=== PATIENT | female | born 1935 | race Caucasian/White ===

== ENCOUNTER → 2016-08-30 | Outpatient (CLI) | payer OTHER ==
[~2016-08-30] MED LIST: ADVAIR 2501 DISK W/D PO; ADVAIR 500-501 EACH IH; ADVAIR DISKU1 500/50 INH; ALBUTEROL 0.5ML INH; ALBUTEROL MININEB NEB; ALBUTEROL17 GM; ALBUTEROL17 GM INH; ALPRAZOLAM PO; ARTIFICIAL TEAR1 DRP OU; CARAFATE1 G PO; CRESTOR PO; DICLOFENAC; EYE ITCH RELIEF OU; FLEXERIL PO; LIPITOR; LIPITOR PO; LISINOPRIL10 MG PO; LORTAB 7.5-5001 TAB PO; MEDROL PO; MILK OF MAGNESIA PO; NORVASC; NORVASC PO; OMEPRAZOLE20 M1 PO; PRILOSEC PO; QVAR7.3 GM; STOOL SOFTENER PO; SYNTHROID; SYNTHROID PO; ZETIA PO; ZOLOFT; ZOLOFT PO; ZYRTEC PO
--- NOTE | ~2016-08-30 | XA30 ---
[facility] A Service of [facility] RADIOLOGY TEXT RESULTS PATIENT: STEPHY KAYE LOCATION: [facility] : 35 UNIT #: [id number] AGE: [address]: Duc Triana MD SEX: F ORDER DR: [id number] [facility]. [place], [place] [address] [id number] O MR#: [id number] Acc #: [id number] NAME: STEPHY KAYE : 1935 SEX: F STUDY DATE/TIME: 08/30/2016 12:55 UNIT: [facility] ROOM: STUDY DESCRIPTION: XA Arthrocentesis Major Joint Attending Physician: Duc Triana M.D. Referring Physician: Duc Triana M.D. Ordering Physician: Duc Triana M.D. Primary Care Physician: Mane Mccormick M.D. MEDICAL IMAGING REPORT This report is preliminary unless electronic signature is present EXAM Fluoroscopically guided right hip injection INDICATION Osteoarthritis. The patient has undergone a prior right hip injection in Dr. Triana's office without relief. PROCEDURE There risks, benefits, and alternatives to the procedure were explained to the patient, and signed, informed consent was obtained. She was placed supine on the angiographic table and prepped and draped in the usual sterile fashion. Time-out was performed as protocol. Skin and subcutaneous tissues were anesthetized with buffered lidocaine and a 22-gauge spinal needle was advanced into the joint space. Contrast was injected which confirmed location within the joint space. I then instilled a combination of lidocaine, bupivacaine and Depo-Medrol. Needle was then removed and manual pressure was applied until hemostasis was obtained. Total fluoroscopy time was 0.4 minutes. AK was 5 mGy. IMPRESSION Technically successful fluoroscopically-guided right hip injection as noted above. Fluoroscopy was used during the procedure and permanent images were saved. Dictated by... Nahomy Simpson M.D. THIS IS AN ELECTRONICALLY VERIFIED REPORT Nahomy Simpson M.D. at 08/31/2016 5:50 PM AFF/jw TD: 08/31/2016 11:12 JOB #: [id number] [facility] A Service of [facility] RADIOLOGY TEXT RESULTS PATIENT: STEPHY KAYE LOCATION: [facility] #: [id number] : 35 UNIT #: [id number] AGE: [address]: Duc Triana MD SEX: F ORDER DR: MEDICAL IMAGING REPORT Page 1 of 1 COPY
== END | disposition home or self-care (01) ==
LOC: CIVR 12:14
DX: M16.11 Unilateral primary osteoarthritis, right hip (principal)
CPT/HCPCS: 77002; J1030; Q9966